=== PATIENT | female | born 1995 | race Caucasian/White ===

== ENCOUNTER 2020-05-21 18:19 | Inpatient (IN) | payer MEDICAID, SELFPAY ==
[~2020-05-21] VITALS: Ht 144.8 cm; Wt 43.5 kg
[2020-05-21 18:19] VITALS: BP_SYST 113
[~2020-05-21 18:19] MED LIST: BUPIVACAINE /PF 0.25% 30 ML VIAL INJ ONE; GLYCOPYRROLATE 0.2 MG/ML VIAL IJ ONE; LIDOCAINE/EPI 1% 1:100000 20 ML VIAL INJ ONE; METOCLOPRAMIDE HCL 10 MG/2 ML VIAL IVP ONE; NEOSTIGMINE METHYLSULFATE 1 MG/ML, 10 ML VIAL IM ONE; NS 1000 ML IV.SOLN IV ONE; NS IRRIG SOLN 1000 ML IR ONE; ONDANSETRON HCL 4 MG/2 ML VIAL IVP ONE; PIPERACILLIN/TAZOBACTAM 3.375 GM/DEX-IS 50 ML PIGGYBACK IV ONE; PROPOFOL 200MG/ 20ML VIAL (DIPRIVAN) IV ONE; ROCURONIUM BROMIDE 10 MG/ML (ZEMURON) IV ONE; SEVOFLURANE 15 MIN GAS INH ONE; fentaNYL CITRATE/PF 100 MCG/2 ML AMP IVP ONE
--- NOTE | 2020-05-21 18:20 | NUR ---
Patient triaged and placed on wall. VSS and patient appears in no acute distress at this time. Accompanied by pct, awaiting available bed, and MD notified of need for MSE.
--- NOTE | 2020-05-21 18:36 | NUR ---
Patient to ER bed 4 to gown for evaluation. Side rails up. Report given to CONCEPCION Galvan.
--- NOTE | 2020-05-21 18:40 | NUR ---
Patient presented to ER C/O abdominal pain. Patient BIB BLS to ER, A&Ox4, temp 100.0, skin pink & warm, denies N/V/D, pain 10/. Patient states she has adominal pain x1 week. Patient reports PMD referred for surgical intervention to remove IUD, patient did not follow-up.
[2020-05-21] MEDS ORDERED: NACL 0.9% 1,000 ML IV ONE ×2 (18:45→19:15)
[2020-05-21] MEDS ORDERED: cefTRIAXone 1 GM IVPB PREMIX 50 ML IV ONE (18:45)
--- NOTE | 2020-05-21 19:10 | NUR ---
Report to Tiarra JAVIER
[2020-05-21] MEDS ORDERED: MORPHINE 4 MG/ML INJ. SYRINGE IVP ONE (19:15)
[2020-05-21] MEDS ORDERED: ONDANSETRON HCL 4 MG/2 ML VIAL IVP ONE (19:15)
[2020-05-21 19:17] LABS: BASOPHILS % (AUTO) 0.3 % (0.0-2.0); HEMATOCRIT 35.7 % (36-48); HEMOGLOBIN 12.4 g/dL (12.0-16.0); LYMPHOCYTES # (AUTO) 1.8 K/uL (1.0-5.5); LYMPHOCYTES % (AUTO) 11.4 % (20.5-51.5); MEAN CORPUSCULAR HEMOGLOBIN 31 pg (27-31); MEAN CORPUSCULAR HGB CONC 35 % (32-36); MEAN CORPUSCULAR VOLUME 89 fL (79.0-98.0); MONOCYTES # (AUTO) 2.5 K/uL (0.0-1.0); MONOCYTES % (AUTO) 15.7 % (1.7-9.3); NEUTROPHILS # (AUTO) 11.4 K/uL (1.8-7.7); NEUTROPHILS % (AUTO) 72.6 % (40.0-70.0); PLATELET COUNT (AUTO) 436 K/uL (130-430); RED BLOOD CELL COUNT(AUTO) 4.02 MIL/uL (4.2-6.2); RED CELL DISTRIBUTION WIDTH 13.6 % (9.0-15.0); WHITE BLOOD COUNT (AUTO) 15.6 K/uL (4.8-10.8)
[2020-05-21 19:22] LABS: BILIRUBIN,URINE 1+ (NEGATIVE); BLOOD, URINE 2+ (NEGATIVE); CLARITY/URINE CLOUDY (CLEAR); COLOR,URINE ORANGE (YELLOW); GLUCOSE,URINE NEGATIVE (NEGATIVE); KETONES,URINE TRACE (NEGATIVE); LEUKOCYTE ESTERASE ,URINE NEGATIVE (NEGATIVE); NITRITE, URINE POSITIVE (NEGATIVE); PH,URINE 5.5 (5.0-8.0); PROTEIN URINE 2+ (NEGATIVE)
[2020-05-21 19:24] LABS: CALCIUM 8.5 mg/dL (8.4-11.0); CREATININE 0.63 mg/dL (0.55-1.30); POTASSIUM 4.2 mmol/L (3.5-5.1)
[2020-05-21 19:30] LABS: BACTERIA,URINE MANY /HPF (None Seen); WBC,URINE 20-50 /HPF (0-3)
[2020-05-21 19:30] LABS: ALBUMIN 3.1 g/dL (3.4-4.8); TOTAL BILIRUBIN 0.5 mg/dL (0.0-1.0)
--- NOTE | 2020-05-21 19:30 | NUR ---
Covid swab obtained and sent to lab.
[2020-05-21 19:31] LABS: MUCUS,URINE 3+ /LPF (None Seen)
--- NOTE | 2020-05-21 19:40 | NUR ---
PT TO CT SCAN VIA WHEELCHAIR
--- NOTE | 2020-05-21 19:55 | NUR ---
PT BACK FROM CT SCAN
[2020-05-21] MEDS ORDERED: LORazepam 2 MG/ML VIAL IVP PRN (21:00)
[2020-05-21] MEDS ORDERED: MORPHINE 2 MG/ML INJ. SYRINGE IVP PRN (21:00)
[2020-05-21] MEDS ORDERED: POTASSIUM CHLORIDE 20 MEQ TAB.PRT.SR PO PRN (21:00)
[2020-05-21] MEDS ORDERED: MAGNESIUM SULFATE 50 ML IV PRN (21:00)
[2020-05-21] MEDS ORDERED: ONDANSETRON HCL 4 MG/2 ML VIAL IVP PRN (21:00)
[2020-05-21] MEDS ORDERED: ZOLPIDEM TARTRATE 5 MG TABLET PO PRN (21:00)
[2020-05-21] MEDS ORDERED: DOCUSATE SODIUM 100 MG CAPSULE PO PRN (21:00)
[2020-05-21] MEDS ORDERED: MUPIROCIN 2% TOPICAL OINTMENT 22 GM NS PRN (21:00)
[2020-05-21] MEDS ORDERED: PIPERACILLIN/TAZO 3.375 GM in NS 50 ML IV ONE (21:00)
[2020-05-21] MEDS ORDERED: ACETAMINOPHEN 325 MG TABLET PO PRN (21:00)
--- NOTE | 2020-05-21 21:00 | NUR ---
Patient will be admitted to care of [facility]. Admitted to MED SURG unit. Belongings list completed. Complete and up to date summary report printed. SBAR report to be given at bedside with opportunity for questions.
--- NOTE | 2020-05-21 21:40 | NUR ---
Note valery in EDM - 05/21/20 at 2142 by MICA Patient will be admitted to care of [facility]. Admitted to MED SURG unit. Will go to room 107B. Belongings list completed. Complete and up to date summary report printed. SBAR report to be given at bedside with opportunity for questions.
[2020-05-21] MEDS: PIPERACILLIN/TAZO 3.375/DEX-IS 50 ML IV SCH (21:53)
--- NOTE | 2020-05-21 21:56 | NUR ---
ADMISSION NOTE Received patient from ER via veronica, received report from CONCEPCION COTTRELL. Patient admitted with diagnosis of ACUTE CHOLECYSTITIS. Patient oriented to hospital routine, call light, toileting and safety-patient verbalized understanding.
[2020-05-21] MEDS ORDERED: PIPERACILLIN/TAZOBACTAM 3.375 GM/VIAL (ZOSYN) IV ONE ×2 (22:07→22:24)
[2020-05-21 22:10] VITALS: BP_SYST 92
--- NOTE | 2020-05-21 22:30 | NUR ---
Initial RN notes Pt asleep, easily awakens, no s/s distress noted. Pt denies pain at this time, was given morphine in ER. IVF started at ordered rate on L. AC 20G good blood return. Call light within reach. Bed low, locked, siderails up x2, alarm on. To monitor.
[2020-05-21] MEDS: D5NS 1,000 ML IV SCH (23:24)
[2020-05-22 00:09] VITALS: BP_SYST 96
--- NOTE | 2020-05-22 02:33 | NUR ---
Rounds Pt asleep, no s/s distress noted. IVF infusing at ordered rate clear and patent. Call light within reach. To monitor.
--- NOTE | 2020-05-22 02:46 | NUR ---
Bathroom Pt called to use bathroom, assisted to bathroom, steady gait, pt denies dizziness. Pt voided. To monitor.
[2020-05-22] MEDS: MORPHINE 2 MG/ML INJ. SYRINGE IVP PRN ×3 (03:40→22:09)
--- NOTE | 2020-05-22 03:42 | NUR ---
Pain Pt c/o severe R.Abd pain, medicated with Morphine 2mg IVP as needed. IVF infusing at ordered rate L. AC no s/s infiltration. Call light within reach. To monitor.
[2020-05-22] MEDS: PIPERACILLIN/TAZO 3.375/DEX-IS 50 ML IV SCH ×3 (05:25→21:40)
--- NOTE | 2020-05-22 05:30 | NUR ---
Closing notes Pt asleep, easily awakens, no s/s distress noted. Pt states pain is ok at this time. IVF infusing at ordered rate on L. AC 20G clear and patent. Call light within reach. Bed low, locked, siderails up x2. To endorse to AM nurse.
[2020-05-22 06:19] LABS: BASOPHILS % (AUTO) 0.2 % (0.0-2.0); EOSINOPHILS # (AUTO) 0.1 K/uL (0.0-0.4); EOSINOPHILS % (AUTO) 0.5 % (0.0-4.0); HEMATOCRIT 30.9 % (36-48); HEMOGLOBIN 10.5 g/dL (12.0-16.0); LYMPHOCYTES # (AUTO) 1.9 K/uL (1.0-5.5); LYMPHOCYTES % (AUTO) 14.3 % (20.5-51.5); MEAN CORPUSCULAR HEMOGLOBIN 30 pg (27-31); MEAN CORPUSCULAR HGB CONC 34 % (32-36); MEAN CORPUSCULAR VOLUME 89 fL (79.0-98.0); MONOCYTES # (AUTO) 2.1 K/uL (0.0-1.0); MONOCYTES % (AUTO) 15.9 % (1.7-9.3); NEUTROPHILS # (AUTO) 9.3 K/uL (1.8-7.7); NEUTROPHILS % (AUTO) 69.1 % (40.0-70.0); PLATELET COUNT (AUTO) 366 K/uL (130-430); RED BLOOD CELL COUNT(AUTO) 3.48 MIL/uL (4.2-6.2); RED CELL DISTRIBUTION WIDTH 14.3 % (9.0-15.0); WHITE BLOOD COUNT (AUTO) 13.4 K/uL (4.8-10.8)
[2020-05-22 06:27] LABS: CALCIUM 7.6 mg/dL (8.4-11.0); CREATININE 0.57 mg/dL (0.55-1.30); POTASSIUM 3.3 mmol/L (3.5-5.1)
--- NOTE | 2020-05-22 07:10 | NUR ---
OPENING NOTE RECEIVED BEDSIDE SBAR FROM NIGHT RN, PATIENT IN BED, RESPIRATIONS EVEN, NON LABORED, BED IN LOW AND LOCKED POSITION, CALL LIGHT WITHIN REACH,
--- NOTE | 2020-05-22 07:40 | NUR ---
MD ROUNDS DR CORDON BEDSIDE EXAMINING PATIENT
[2020-05-22 08:00] VITALS: BP_SYST 109
--- NOTE | 2020-05-22 08:00 | NUR ---
NURSE NOTE OBTAINED VS, MRSA, AND URINE SPECIMEN COLLECTED, PATIENT IN BED, RESPIRATIONS EVEN, NON LABORED, BED IN LOW AND LOCKED POSITION, CALL LIGHT WITHIN REACH
--- NOTE | 2020-05-22 08:30 | NUR ---
NURSE NOTE ADMINISTERED PAIN MEDICATION, 02/18, PATIENT IN BED, EYES CLOSED, BED IN LOW AND LOCKED POSITION, CALL LIGHT WITHIN REACH
--- NOTE | 2020-05-22 08:54 | NUR ---
Nutrition Update Avelino scale 18 noted. Pt admitted for acute cholecystitis Diet: NPO BMI: 20.8 kg/m2 RD to follow per nutrition care standards
[2020-05-22 09:00] LABS: HCG,QUAL RESULT NEGATIVE (NEGATIVE)
--- NOTE | 2020-05-22 09:40 | NUR ---
MD ROUNDS DR TERRELL BEDSIDE EXAMINING PATIENT
--- NOTE | 2020-05-22 09:50 | NUR ---
PATIENT LEFT FOR SURGERY, VIA GURNEY
[2020-05-22] MEDS ORDERED: NALOXONE HCL 0.4 MG/ML AMP (NARCAN) IVP PRN ×3 (10:30→10:45)
[2020-05-22] MEDS ORDERED: HYDROmorphone 1 MG INJ. 1 MG/ML AMPUL IM PRN (10:30)
[2020-05-22] MEDS ORDERED: ONDANSETRON HCL 4 MG/2 ML VIAL IVP PRN (10:45)
[2020-05-22] MEDS ORDERED: KETOROLAC TROMETHAMINE 30 MG VIAL IVP PRN (10:45)
[2020-05-22] MEDS ORDERED: HYDROmorphone 1 MG INJ. 1 MG/ML AMPUL IVP PRN (10:45)
[2020-05-22] MEDS ORDERED: HYDROmorphone 1 MG INJ. 1 MG/ML AMPUL ONE (12:10)
--- NOTE | 2020-05-22 12:50 | NUR ---
NURSE NOTE RETURNED FROM SURGERY, PATIENT IN BED, RESPIRATIONS EVEN, NON LABORED, AMBULATED TO BATHROOM, VOIDED, RETURNED TO BED, OBTAINED VS, BED IN LOW AND LOCKED POSITION, CALL LIGHT WITHIN REACH, SCD'S ON IVF'S RUNNING ORDERED, BED ALARM ON
--- NOTE | 2020-05-22 13:54 | NUR ---
Dietitian Recommendations *Recommend continue Low Fat Diet *Assess educational needs upon next visit if/when applicable. Please see Nutrition Assessment for details. ZACHARY JACOBSEN
--- NOTE | 2020-05-22 14:15 | NUR ---
nurse note assisted patient ambulate to the bathroom, returned to bed, administered medications, hung new IVF"s as ordered. Patient states 6/10 pain but does not want medication yet
[2020-05-22] MEDS: D5NS 1,000 ML IV SCH ×2 (14:20→17:00)
[2020-05-22 14:42] VITALS: BP_SYST 110
[2020-05-22 16:00] VITALS: BP_SYST 113
--- NOTE | 2020-05-22 16:00 | NUR ---
nurse note assisted patient to ambulate to the bathroom, returned to bed, respirations even, non labored, bed in low and locked position, call light within reach
--- NOTE | 2020-05-22 18:40 | NUR ---
nurse note patient complaining of pain, requesting pain medication, repositioned patient, respirations even, non labored, bed in low and locked position, call light within reach, bed alarm on
--- NOTE | 2020-05-22 19:10 | NUR ---
closing note Provided SBAR to night RN, patient in bed, respirations even, non labored, bed in low and locked position, call light within reach, endorsed care to night RN
--- NOTE | 2020-05-22 19:40 | NUR ---
ROUNDS PATIENT RESTING COMFORTABLY IN BED, NOT IN DISTRESS, VITALS STABLE. NO PAIN AT THIS TIME. ASSESSMENT DONE AND DOCUEMNTED. SEE FLOWSHEET. NEEDS ATTENDED TO. SAFETY MEASURES IN PLACED. CALL LIGHT PLACED WITHIN REACH.
--- NOTE | 2020-05-22 21:16 | NUR ---
MEDICATION DUE MEDICATIONS GIVEN SCHEDULED, TOLERATED WELL. WILL CONTINUE TO MONITOR.
[2020-05-23 00:41] VITALS: BP_SYST 104
[2020-05-23] MEDS: MORPHINE 2 MG/ML INJ. SYRINGE IVP PRN ×4 (01:35→21:08)
[2020-05-23] MEDS: PIPERACILLIN/TAZO 3.375/DEX-IS 50 ML IV SCH ×3 (06:04→22:41)
[2020-05-23] MEDS: D5NS 1,000 ML IV SCH ×3 (06:11→22:41)
[2020-05-23 06:53] LABS: CALCIUM 7.8 mg/dL (8.4-11.0); CREATININE 0.47 mg/dL (0.55-1.30); HEMOGLOBIN 9.7 g/dL (12.0-16.0); LYMPHOCYTES # (AUTO) 1.9 K/uL (1.0-5.5); LYMPHOCYTES % (AUTO) 12.2 % (20.5-51.5); MEAN CORPUSCULAR HEMOGLOBIN 30 pg (27-31); MEAN CORPUSCULAR HGB CONC 35 % (32-36); MEAN CORPUSCULAR VOLUME 87 fL (79.0-98.0); MONOCYTES # (AUTO) 1.5 K/uL (0.0-1.0); MONOCYTES % (AUTO) 9.8 % (1.7-9.3); NEUTROPHILS # (AUTO) 12.1 K/uL (1.8-7.7); PLATELET COUNT (AUTO) 360 K/uL (130-430); POTASSIUM 3.3 mmol/L (3.5-5.1); RED BLOOD CELL COUNT(AUTO) 3.21 MIL/uL (4.2-6.2); RED CELL DISTRIBUTION WIDTH 13.9 % (9.0-15.0); WHITE BLOOD COUNT (AUTO) 15.5 K/uL (4.8-10.8)
[2020-05-23 08:00] VITALS: BP_SYST 120
--- NOTE | 2020-05-23 08:21 | NUR ---
CONSULTATION PAGED/CALLED Reason for Consultation: [] GANGRENOUS CHOLECYSTITIS Person Who was Notified: [] ANT Consulting Physician: [] DR MOORE [employer] Pump Operator Specialty: [] ID Ordering Physician: [] DR CORDON
[2020-05-23] MEDS: HYDROcodone/ACETAMIN 5-325 MG TAB (NORCO/ VICODIN) PO PRN (08:58)
[2020-05-23] MEDS ORDERED: VANCOMYCIN HCL 500 MG in NS 100 ML IV SCH (09:00)
--- NOTE | 2020-05-23 09:58 | NUR ---
SS NOTES: MOVIE THEATER USHER was referred by SS to see patient for self-pay and DCP. MOVIE THEATER USHER met with patient at bedside. Pt was alert and oriented. Pt was grimacing but cooperative throughout the interview. Patient stated she is in pain and needed to use the restroom; MOVIE THEATER USHER escorted patient to restroom. Pt stated she lives in [place] but is currently staying at her friend Alison's home in [place]. Patient stated she is unemployed and no source of income. Pt denies any history or current mental health or substance use/abuse. MOVIE THEATER USHER encouraged patient to provide necessary paperwork for [employer]; pt agreed. When discharge, pt's friend Alison will pick her up. [facility] resource and [employer] phone number provided. No further SS needs identified.
--- NOTE | 2020-05-23 10:05 | NUR ---
sleepy when first met, few words exchanged. c/o of pain on incisional sites, one po NORCO given, with relief K+ down to 3.2, 40meq po given now. did not eat any breakfast, just want to rest now .
[2020-05-23 12:16] VITALS: BP_SYST 106
[2020-05-23] MEDS ORDERED: LINEZOLID 300 ML IV ONE (13:00)
[2020-05-23] MEDS ORDERED: FLUCONAZOLE 100 mg/ NS 50 ML IV SCH (14:00)
--- NOTE | 2020-05-23 14:27 | NUR ---
wide awake now, eating the subway sandwich, brought from home, to the patient, only 1/2 sandwich, and one big bowl of soup. denied pain right now, IS initiated, went up to 500, x 5times. Right now getting ZYVOX ivpb. Fully aware after all abx given, she will get out of be to ambulate with staff. Denied pain at this time
[2020-05-23 16:15] VITALS: BP_SYST 103
--- NOTE | 2020-05-23 19:30 | NUR ---
OPENING NOTES RECEIVED REPORT FROM DAY SHIFT RN. PT RESTING IN BED, ALERT & ORIENTED X4. BREATHING EVEN AND UNLABORED TO ROOM AIR. PT ALBERTO ANY SHORTNESS OF BREATH. IV ON LEFT AC 20G INTACT, IVF RUNNING ORDERED RATE. NO SIGNS OF INFILTRATION NOTED. CALL LIGHT WITHIN REACH. SIDE RAILS UP X3. BED LOCKED IN LOWEST POSITION. SAFETY PRECAUTIONS MAINTAINED. WILL CONTINUE TO MONITOR.
[2020-05-23 20:00] VITALS: BP_SYST 122
--- NOTE | 2020-05-23 21:08 | NUR ---
PAIN/MORPHINE PT REPORTING ABDOMINAL INCISION PAIN. ADMINISTERED MORPHINE PAIN MEDICATIONS ORDERED PRN. DISCUSSED MEDICATION ACTIONS AND POTENTIAL SIDE EFFECTS. PT VERBALIZED UNDERSTANDING. BREATHING EVEN AND UNLABORED TO ROOM AIR. CALL LIGHT WITHIN REACH. BED LOCKED IN LOWEST POSITION. SAFETY PRECAUTIONS IN PLACE. WILL CONTINUE TO MONITOR.
--- NOTE | 2020-05-23 22:41 | NUR ---
AURORA JOHNSYN HUNG ZOSYN ORDERED RATE. NO S/S OF ADVERSE REACTION NOTED. PT TOLERATING WELL. NO S/S OF ACUTE DISTRESS NOTED. CALL LIGHT WITHIN REACH. SIDE RAILS UP. BED LOCKED IN LOWEST POSITION. SAFETY PRECAUTIONS MAINTAINED. WILL CONTINUE TO MONITOR.
[2020-05-24] VITALS: BP_SYST 115
[2020-05-24] MEDS ORDERED: LINEZOLID 300 ML IV SCH
--- NOTE | 2020-05-24 01:15 | NUR ---
RN NOTES: DEVELOPMENTAL SERVICES WORKER CAME AND STATED THAT PT STATED WHILE PT WAS IN THE RESTROOM , ( WHEN SHE WAS GETTING UP FROM THE COMMODE) SHE HIT HER RIGHT EYELID CORNER ON THE IV PUMP , WENT TO THE PT ROOM ASSESSED , PT STATED SHE HAS MILD PAIN ON THE AREA , NO REDNESS , NO CUTS OR BRUISES ,NO BUMPS OR SWELLING NOTICED AT THIS TIME . WILL NOTIFY PRIMARY RN AND WILL REQUEST TO MONITOR IT . PROVIDED ICE PACK .
--- NOTE | 2020-05-24 01:34 | NUR ---
RN ROUNDS ASSESSED AND RECHECKED RIGHT EYELID CORNER, NO REDNESS, BRUISES,AND SWELLING NOTED. PT ALBERTO ANY PAIN AT THIS TIME. WILL KEEP CONTINUE TO MONITOR.
[2020-05-24] MEDS: PIPERACILLIN/TAZO 3.375/DEX-IS 50 ML IV SCH (05:28)
[2020-05-24] MEDS: D5NS 1,000 ML IV SCH (05:29)
[2020-05-24] MEDS: HYDROcodone/ACETAMIN 5-325 MG TAB (NORCO/ VICODIN) PO PRN (06:32)
[2020-05-24 06:36] LABS: BASOPHILS % (AUTO) 0.2 % (0.0-2.0); EOSINOPHILS % (AUTO) 0.1 % (0.0-4.0); HEMATOCRIT 29.5 % (36-48); HEMOGLOBIN 10.1 g/dL (12.0-16.0); LYMPHOCYTES # (AUTO) 2.1 K/uL (1.0-5.5); LYMPHOCYTES % (AUTO) 17.2 % (20.5-51.5); MEAN CORPUSCULAR HEMOGLOBIN 30 pg (27-31); MEAN CORPUSCULAR HGB CONC 34 % (32-36); MEAN CORPUSCULAR VOLUME 88 fL (79.0-98.0); MONOCYTES # (AUTO) 1.8 K/uL (0.0-1.0); MONOCYTES % (AUTO) 15.1 % (1.7-9.3); NEUTROPHILS # (AUTO) 8.1 K/uL (1.8-7.7); NEUTROPHILS % (AUTO) 67.4 % (40.0-70.0); PLATELET COUNT (AUTO) 505 K/uL (130-430); RED BLOOD CELL COUNT(AUTO) 3.36 MIL/uL (4.2-6.2); RED CELL DISTRIBUTION WIDTH 14.3 % (9.0-15.0)
[2020-05-24 06:47] LABS: CALCIUM 8.1 mg/dL (8.4-11.0); CREATININE 0.64 mg/dL (0.55-1.30); POTASSIUM 3.6 mmol/L (3.5-5.1)
--- NOTE | 2020-05-24 06:52 | NUR ---
CLOSING NOTES PT RESTING IN BED. BREATHING EVEN AND UNLABORED TO ROOM AIR. PT ALBERTO ANY SHORTNESS OF BREATH. IV ON LEFT AC 20G INTACT, IVF RUNNING ORDERED RATE. NO SIGNS OF INFILTRATION NOTED. CALL LIGHT WITHIN REACH. SIDE RAILS UP X3. BED LOCKED IN LOWEST POSITION. SAFETY PRECAUTIONS MAINTAINED. ALL NEEDS ARE MET THROUGHOUT SHIFT. WILL CONTINUE TO MONITOR UNTIL ENDORSE TO DAY SHIFT RN.
[2020-05-24 08:00] VITALS: BP_SYST 94
[2020-05-24] MEDS ORDERED: METR500T PO (08:38)
[2020-05-24] MEDS ORDERED: LACT1CAP69 PO (08:38)
[2020-05-24] MEDS ORDERED: LEVO500T89 PO (08:38)
[2020-05-24] MEDS ORDERED: HYDR-4272 PO (10:16)
[2020-05-24 11:07] VITALS: BP_SYST 94
[2020-05-24 12:13] VITALS: BP_SYST 108
--- NOTE | 2020-05-24 12:27 | NUR ---
alert, oriented, in happy moods today, and wants to talk. Denied pain, seen by attending this time, dr Christiansen, patient is discharged to home, with RX 1/ [place] for pain, 5/325mg by mouth, every 4hrs as needed 2/ Levaquin, and Flagyl, by mouth, E RX, called in by the physician. To follow up with dr Josiah Andrea, as outpatient. Discharge instructions reviewed with the patient, verbalized understanding, patient is discharged to home with signficant other at 12noon, today
== END 2020-05-24 12:27 | disposition home or self-care (01) | DRG 710 ==
LOC: SED 18:19 → SMU 20:54
PROVIDERS: ADMIT General Practice; ATTEND General Practice
PROC: 0W9G4ZZ Drainage of Peritoneal Cavity, Percutaneous Endoscopic Approach (ICD-10-PCS; 2020-05-22)
PROC: 0FT44ZZ Resection of Gallbladder, Percutaneous Endoscopic Approach (ICD-10-PCS; principal; 2020-05-22 10:00)
DX: A41.9 Sepsis, unspecified organism (principal); K81.0 Acute cholecystitis; E44.1 Mild protein-calorie malnutrition; E87.1 Hypo-osmolality and hyponatremia; K82.A1 Gangrene of gallbladder in cholecystitis; K66.0 Peritoneal adhesions (postprocedural) (postinfection); N39.0 Urinary tract infection, site not specified; E87.6 Hypokalemia; K65.9 Peritonitis, unspecified; Z20.828 Contact with and (suspected) exposure to other viral communicable diseases; Z90.49 Acquired absence of other specified parts of digestive tract
CPT/HCPCS: 36415; 76376; 80048; 80053; 81000-TC; 83036; 83605; 83735-TC; 84703; 85025; 87040-TC; 87081; 87086; 88304; 94010; 96361; 96365; 96375; 99285; C1727; J0696; J1170; J1450; J2020; J2270; J2405; J2543; J2704; J2710; J2765; J3010; J3370; J3490; J7030; J7042; J7060

== ENCOUNTER 2020-06-16 06:17 | Emergency (ER) | payer MEDICAID, SELFPAY ==
[~2020-06-16] VITALS: Ht 144.8 cm; Wt 46.7 kg
[~2020-06-16 06:17] MED LIST changes: -BUPIVACAINE /PF 0.25% 30 ML VIAL INJ ONE; -GLYCOPYRROLATE 0.2 MG/ML VIAL IJ ONE; +HYDR-4272 PO; +LACT1CAP69 PO; +LEVO500T89 PO; -LIDOCAINE/EPI 1% 1:100000 20 ML VIAL INJ ONE; -METOCLOPRAMIDE HCL 10 MG/2 ML VIAL IVP ONE; +METR500T PO; -NEOSTIGMINE METHYLSULFATE 1 MG/ML, 10 ML VIAL IM ONE; -NS 1000 ML IV.SOLN IV ONE; -NS IRRIG SOLN 1000 ML IR ONE; -ONDANSETRON HCL 4 MG/2 ML VIAL IVP ONE; -PIPERACILLIN/TAZOBACTAM 3.375 GM/DEX-IS 50 ML PIGGYBACK IV ONE; -PROPOFOL 200MG/ 20ML VIAL (DIPRIVAN) IV ONE; -ROCURONIUM BROMIDE 10 MG/ML (ZEMURON) IV ONE; -SEVOFLURANE 15 MIN GAS INH ONE; -fentaNYL CITRATE/PF 100 MCG/2 ML AMP IVP ONE
[2020-06-16 06:36] VITALS: BP_SYST 119
[2020-06-16] MEDS ORDERED: NACL 0.9% 1,000 ML IV ONE (07:15)
[2020-06-16 07:46] LABS: BASOPHILS % (AUTO) 0.5 % (0.0-2.0); EOSINOPHILS # (AUTO) 0.1 K/uL (0.0-0.4); HEMATOCRIT 40.7 % (36-48); HEMOGLOBIN 13.3 g/dL (12.0-16.0); LYMPHOCYTES # (AUTO) 2.3 K/uL (1.0-5.5); LYMPHOCYTES % (AUTO) 34.5 % (20.5-51.5); MEAN CORPUSCULAR HEMOGLOBIN 30 pg (27-31); MEAN CORPUSCULAR HGB CONC 33 % (32-36); MEAN CORPUSCULAR VOLUME 90 fL (79.0-98.0); MONOCYTES # (AUTO) 0.8 K/uL (0.0-1.0); MONOCYTES % (AUTO) 11.6 % (1.7-9.3); NEUTROPHILS # (AUTO) 3.5 K/uL (1.8-7.7); NEUTROPHILS % (AUTO) 51.4 % (40.0-70.0); PLATELET COUNT (AUTO) 459 K/uL (130-430); RED BLOOD CELL COUNT(AUTO) 4.51 MIL/uL (4.2-6.2); RED CELL DISTRIBUTION WIDTH 15.9 % (9.0-15.0); WHITE BLOOD COUNT (AUTO) 6.7 K/uL (4.8-10.8)
[2020-06-16 08:07] LABS: CALCIUM 8.4 mg/dL (8.4-11.0); CREATININE 0.57 mg/dL (0.55-1.30); POTASSIUM 3.6 mmol/L (3.5-5.1)
[2020-06-16 08:13] LABS: ALBUMIN 3.5 g/dL (3.4-4.8); TOTAL BILIRUBIN 0.4 mg/dL (0.0-1.0)
[2020-06-16 09:28] LABS: BILIRUBIN,URINE NEGATIVE (NEGATIVE); BLOOD, URINE NEGATIVE (NEGATIVE); CLARITY/URINE CLEAR (CLEAR); COLOR,URINE YELLOW (YELLOW); GLUCOSE,URINE NEGATIVE (NEGATIVE); KETONES,URINE NEGATIVE (NEGATIVE); LEUKOCYTE ESTERASE ,URINE NEGATIVE (NEGATIVE); NITRITE, URINE NEGATIVE (NEGATIVE); PH,URINE 5.5 (5.0-8.0); PROTEIN URINE NEGATIVE (NEGATIVE); UROBILINOGEN,URINE 0.2 (0.2-1.0)
[2020-06-16] MEDS ORDERED: KETOROLAC TROMETHAMINE 15 MG VIAL IVP ONE (09:30)
[2020-06-16] MEDS ORDERED: KETOROLAC TROMETHAMINE 15 MG VIAL ONE (09:36)
[2020-06-16] MEDS ORDERED: cefTRIAXone 250 MG in LIDOCAINE 1%, 20 ML MDV 0.9 ML IM ONE (11:45)
[2020-06-16] MEDS ORDERED: DOXYCYCLINE HYCLATE 100 MG CAPSULE PO ONE (11:45)
[2020-06-16] MEDS ORDERED: metroNIDAZOLE 500 MG TABLET PO ONE (11:45)
[2020-06-16 13:44] VITALS: BP_SYST 119
[2020-06-18 02:06] LABS: CHLAMYDIA TRACHOMATIS NAA Negative (Negative); NEISSERIA GONORRHOEAE NAA Negative (Negative)
== END 2020-06-16 13:44 | disposition home or self-care (01) ==
LOC: SED 06:17
DX: R10.32 Left lower quadrant pain (principal); Z79.899 Other long term (current) drug therapy
CPT/HCPCS: 36415; 74176; 76830; 76857; 80053; 81003; 81025; 83690; 85025; 87040; 87210; 87491; 87591; 96361; 96372; 96374; 99285; J0696; J1885; J2001; J7030